=== PATIENT | female | born 2000 | race Caucasian/White ===

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

== ENCOUNTER 2019-05-10 22:09 | Outpatient (CLI) | payer SELFPAY ==
[2011-08-14 08:19] VITALS: BMI 20.4
[2019-05-10] MEDS ORDERED: PRENAVITE1 TAB PO (22:47)
[2019-05-10 22:56] LABS: APPEARANCE HAZY (CLEAR); BILIRUBIN NEGATIVE (NEGATIVE); COLOR YELLOW (YELLOW); GLUCOSE NEGATIVE (NEGATIVE); KETONE NEGATIVE (NEGATIVE); NITRITE NEGATIVE (NEGATIVE); PROTEIN NEGATIVE (NEGATIVE)
[2019-05-10 23:00] LABS: BACTERIA MODERATE /hpf (NONE SEEN); EPITHELIAL CELLS 0-5 /hpf (0-5); RED CELLS - URINE 0-5 /hpf (0-5); WHITE CELLS - URINE >50 /hpf (0-5)
== END 2019-05-10 23:40 | disposition home or self-care (01) ==
LOC: D.LDO 22:09 → D.LD 22:53 → D.LDO 23:40
PROVIDERS: ATTEND Obstetrics & Gynecology
DX: O26.899 Other specified pregnancy related conditions, unspecified trimester (principal); Z3A.00 Weeks of gestation of pregnancy not specified; N89.8 Other specified noninflammatory disorders of vagina

== ENCOUNTER 2020-12-30 17:15 | Emergency (ER) | payer SELFPAY ==
[2011-08-14 08:19] VITALS: BMI 20.4
[~2020-12-30 17:15] MED LIST: PRENAVITE1 TAB PO
== END 2020-12-30 18:48 | disposition left against medical advice (07) ==
LOC: D.ER 17:15
DX: N63.0 Unspecified lump in unspecified breast (principal)